=== PATIENT | male | born 1955 | race Caucasian/White ===

== ENCOUNTER 2017-07-14 13:08 | Day surgery (SDC) | payer MEDICARE, MEDICAID ==
[~2017-07-14] VITALS: Ht 170.2 cm; Wt 80.9 kg
[2017-07-14] VITALS (13 sets, daily range): BP systolic 79–112; BP diastolic 47–76
[~2017-07-14 13:08] MED LIST: AMIO200T57 PO; ASPI-1265 PO; ATOR20TA66 PO; CARV6.253 PO; CLOP75TA35 PO; LISI-604 PO; NITR0.4T51 SL; ONDA8TAB6 PO
[2017-07-14] MEDS ORDERED: normal saline 1000ml 1,000 ML IV SCH (13:30)
[2017-07-14] MEDS ORDERED: diphenhydrAMINE 25mg capsule PO PRN (13:30)
[2017-07-14] MEDS ORDERED: LORazepam 0.5 MG tablet PO PRN (13:30)
[2017-07-14] MEDS ORDERED: SACU1TAB PO (13:40)
[2017-07-14] MEDS ORDERED: LIDOcaine 1%/PF (10mg/ml) 5ml vial ONE (14:24)
[2017-07-14] MEDS ORDERED: iohexol 350MG/ML 100ml bottle IV ONE (14:24)
[2017-07-14] MEDS ORDERED: midazolam 2 mg/2 ml injection ONE (14:29)
[2017-07-14] MEDS ORDERED: fentaNYL/PF 50MCG/1 ML 2ML syringe ONE (14:29)
[2017-07-14] MEDS ORDERED: CARV-49 PO (14:32)
[2017-07-14] MEDS ORDERED: CLOP75TA33 PO (14:32)
[2017-07-14] MEDS ORDERED: AMIO200T57 PO (14:32)
[2017-07-14] MEDS ORDERED: ASPI-611 PO (14:32)
[2017-07-14] MEDS ORDERED: ATOR40TA PO (14:32)
[2017-07-14] MEDS ORDERED: heparin 1,000unit/ml 10ml vial 10 ML ONE (14:39)
[2017-07-14] MEDS ORDERED: atropine 0.1mg/ml 10ml syringe ONE (14:44)
[2017-07-14] MEDS ORDERED: clopidogrel 300mg tablet ONE (14:49)
[2017-07-14] MEDS ORDERED: ondansetron/PF 4mg/2ml inj IV PRN (15:25)
[2017-07-14] MEDS ORDERED: HYDROcodone/acetaminophen 5mg/325mg tablet PO PRN (15:25)
[2017-07-14] MEDS ORDERED: HYDROcodone/acetaminophen 10/325mg tab PO PRN (15:25)
[2017-07-14] MEDS ORDERED: proCHLORperazine 10 MG/2 ml inj IV PRN (15:25)
[2017-07-14] MEDS ORDERED: OXAZEpam 15mg capsule PO PRN (15:25)
== END 2017-07-14 19:25 | disposition home or self-care (01) ==
LOC: SSTAY O 13:08
PROVIDERS: ATTEND Internal Medicine Interventional Cardiology
DX: I25.10 Atherosclerotic heart disease of native coronary artery without angina pectoris (principal); I25.2 Old myocardial infarction; I10 Essential (primary) hypertension
CPT/HCPCS: 99152; A6257; C1769; C1874; C9600; J1644; J2001; J2250; J3010; J7030; Q0163; Q9967; A4620; J0461